=== PATIENT | female | born 1980 | race Caucasian/White ===

== ENCOUNTER 2017-07-28 22:00 | Emergency (ER) | payer OTHER ==
[2017-07-29] MEDS: predniSONE 20 MG TAB PO (00:52)
[2017-07-29] MEDS ORDERED: METHYLPREDNISOLONE (MEDROL) DOSE PACK PO (02:30)
== END 2017-07-29 02:49 | disposition home or self-care (01) ==
LOC: FTE 22:00
DX: J02.9 Acute pharyngitis, unspecified (principal)
CPT/HCPCS: 87880; 99283

== ENCOUNTER 2017-10-08 15:49 | Emergency (ER) | payer OTHER ==
[2017-10-08] MEDS: IBUPROFEN 800 MG TAB PO (16:03)
== END 2017-10-08 16:31 | disposition home or self-care (01) ==
LOC: E/R 15:49
DX: L40.9 Psoriasis, unspecified (principal); Z87.891 Personal history of nicotine dependence
CPT/HCPCS: 99283; Z7502